=== PATIENT | male | born 1950 | race Caucasian/White ===

== ENCOUNTER 2018-06-06 09:44 | Inpatient (IN) | payer SELFPAY ==
[~2018-06-06] VITALS: Ht 180.3 cm; Wt 84.4 kg
--- NOTE | 2018-06-06 09:34 | NUR ---
ED Nurse Note: Pt BIBA from [facility] due to dizziness and multiple falls due to dizziness. No head trauma, no KO. Pt had a stent placed 2 years ago. Pt was in hospital from [facility] from 05/23 to 06/05/18 for HTN. Since the discharge, pt has started the fall episodes. AOx4, BP 91/70 upon arrival. Pt usually walks with walker. Monitor attached. Will cont to monitor.
[2018-06-06 09:44] VITALS: BP 118/74
[~2018-06-06 09:44] MED LIST: DOCUSATE SODIU100 MG ORAL; ELIQUIS5 MG PO; FERROUS SULFAT325 MG ORAL; LIPITOR40 MG ORAL; VENLAFAXINE HC150 MG ORAL; XARELTO10 MG ORAL
[2018-06-06] MEDS ORDERED: Sodium Chloride 500ML 500 ML IV ONE (09:47)
--- NOTE | 2018-06-06 10:00 | NUR ---
ED Nurse Note: Blood drawn and sent to lab. X-ray at bedside.
[2018-06-06 10:21] LABS: BASOPHILS % (AUTO) 2.4 % (0.0-2.0); EOSINOPHILS % (AUTO) 1.9 % (0.0-3.0); HEMATOCRIT 43.2 % (42.0-52.0); HEMOGLOBIN 13.2 G/DL (14.2-18.0); LYMPHOCYTES % (AUTO) 12.3 % (20.0-45.0); MEAN CORPUSCULAR VOLUME 86 FL (80-99); MONOCYTES % (AUTO) 7.2 % (1.0-10.0); NEUTROPHILS % (AUTO) 76.2 % (45.0-75.0); PLATELET COUNT 371 K/UL (150-450); RED BLOOD COUNT 5.02 M/UL (4.70-6.10); RED CELL DISTRIBUTION WIDTH 18.2 % (11.6-14.8); WHITE BLOOD COUNT 7.7 K/UL (4.8-10.8)
--- NOTE | 2018-06-06 10:23 | NUR ---
ED Nurse Note: Pt refuses CT head, stated " I did not hit my head, I dont need one", ERMD aware.
[2018-06-06 10:27] LABS: ANION GAP 10 mmol/L (5-15); BLOOD UREA NITROGEN 20 mg/dL (7-18); CALCIUM 9.3 MG/DL (8.5-10.1); CARBON DIOXIDE 24 MMOL/L (21-32); CHLORIDE 104 MMOL/L (98-107); CREATININE 2.1 MG/DL (0.55-1.30); POTASSIUM 4.5 MMOL/L (3.5-5.1); SODIUM 138 MMOL/L (136-145)
[2018-06-06 10:33] LABS: INR 1.1 (0.9-1.1)
[2018-06-06 10:41] LABS: ALANINE AMINOTRANSFERASE 24 U/L (12-78); ALBUMIN 3.5 G/DL (3.4-5.0); ALBUMIN/GLOBULIN RATIO 0.8 (1.0-2.7); ALKALINE PHOSPHATASE 71 U/L (46-116); ASPARTATE AMINO TRANSFERASE 34 U/L (15-37); BILIRUBIN,TOTAL 0.4 MG/DL (0.2-1.0); CKMB 0.5 NG/ML (0.0-3.6); CREATINE KINASE 41 U/L (26-308)
--- NOTE | 2018-06-06 10:51 | Diagnostic Imaging Report ---
Indication: Shortness of breath Technique: One view of the chest Comparison: 01/27/2016 Findings: The heart is enlarged. The lungs and pleural spaces are clear. The aorta is calcified Impression: Cardiomegaly. No acute process
[2018-06-06 11:27] VITALS: BP 144/87
--- NOTE | 2018-06-06 11:28 | Emergency Room Report ---
History of Present Illness General Chief Complaint: Dizziness Source: EMS Present Illness HPI 67-year-old male presents ED for evaluation. Patient complaining of dizziness and fall today. Happened at his rehabilitation facility. States that whenever he urinates he gets dizzy. States he fell but denies hitting his head. States he was just discharged yesterday from another hospital to a rehabilitation facility. States they give him his medications at this facility. History of A. fib. Denies chest pain or shortness of breath. Admits alcohol use but denies any other time. Denies drug use. Denies any headache. No other aggravating relieving factors. Denies any other associated symptoms Allergies: Coded Allergies: No Known Allergies (Unverified , 08/02/14) Patient History Past Medical History: AFib, CVA/TIA Past Surgical History: none Pertinent Family History: none Social History: Denies: smoking, alcohol use, drug use Immunizations: UTD Reviewed Nursing Documentation: PMH: Agreed; PSxH: Agreed Nursing Documentation-PMH Past Medical History: No History, Except For Hx Cardiac Problems: No - KIDNEY DISEASE, CHF, AFIB Hx Hypertension: Yes Hx Pacemaker: Yes Hx Cancer: No Hx Gastrointestinal Problems: No Hx Neurological Problems: Yes Hx Cerebrovascular Accident: Yes Hx Syncope: Yes Hx Headaches: Yes Hx Numbness: Yes Review of Systems All Other Systems: negative except mentioned in HPI Physical Exam Vital Signs Date Time Temp Pulse Resp B/P (MAP) Pulse Ox O2 Delivery O2 Flow Rate FiO2 06/06/18 09:29 97.9 96 18 120/47 100 Room Air Sp02 EP Interpretation: reviewed, normal General Appearance: no apparent distress, alert, GCS 15, non-toxic Head: normocephalic, atraumatic Eyes: bilateral eye normal inspection, bilateral eye PERRL ENT: hearing grossly normal, normal pharynx, no angioedema, normal voice Neck: full range of motion, supple/symm/no masses Respiratory: chest non-tender, lungs clear, normal breath sounds, speaking full sentences Cardiovascular #1: regular rate, rhythm, no edema Cardiovascular #2: 2+ carotid (R), 2+ carotid (L), 2+ radial (R), 2+ radial (L) , 2+ dorsalis pedis (R), 2+ dorsalis pedis (L) Gastrointestinal: normal bowel sounds, non tender, soft, non-distended, no guarding, no rebound Rectal: deferred Genitourinary: normal inspection, no CVA tenderness Musculoskeletal: back normal, gait/station normal, normal range of motion, non- tender Neurologic: alert, oriented x3, responsive, motor strength/tone normal, sensory intact, speech normal Psychiatric: judgement/insight normal, memory normal, mood/affect normal, no suicidal/homicidal ideation Reflexes: 3+ bicep (R), 3+ bicep (L), 3+ tricep (R), 3+ tricep (L), 3+ knee (R) , 3+ knee (L) Skin: normal color, no rash, warm/dry, well hydrated Lymphatic: no adenopathy Medical Decision Making Diagnostic Impression: Primary Impression: Atrial fibrillation Qualified Codes: I48.91 - Unspecified atrial fibrillation Additional Impressions: Dizziness Unsteady gait Renal failure Qualified Codes: N18.9 - Chronic kidney disease, unspecified ER Course Hospital Course 67 yo M presents to ED c/o dizziness, s/p fall today Differential diagnoses include: NV/unstable angina, arrythmia, dehydration, CVA/ TIA Clinical course Patient placed on stretcher. on court monitor. After initial history and physical I ordered labs, EKG, chest x-ray, IVFs, CT Brain labs reviewed- no leukocytosis, hemoglobin/hematocrit ok, BUN/Cr elevated, troponins negative, UDS negative EKG- afib, no acute ischemic changes interpreted by me Chest x-ray- cardiomegaly CT brain- patient declined It is not safe for patient to be discharged to home as he is a fall risk Case discussed with Dr. Garcia and he agreed to accept the patient to his service for further care and support I. I feel this is a highly complex case requiring extensive working including EKG/Rhythm strip, Xray/CT/US, Blood/urine lab work, repeat exams while in ED, and administration of strong opiates/narcotics for pain control, admission to hospital or close patient follow up. Diagnosis - afib, dizziness, unsteady gait, renal failure admitted to telemetry in serious condition Labs Test 06/06/18 10:00 06/06/18 10:14 White Blood Count 7.7 K/UL (4.8-10.8) Red Blood Count 5.02 M/UL (4.70-6.10) Hemoglobin 13.2 G/DL (14.2-18.0) Hematocrit 43.2 % (42.0-52.0) Mean Corpuscular Volume 86 FL (80-99) Mean Corpuscular Hemoglobin 26.4 PG (27.0-31.0) Mean Corpuscular Hemoglobin Concent 30.7 G/DL (32.0-36.0) Red Cell Distribution Width 18.2 % (11.6-14.8) Platelet Count 371 K/UL (150-450) Mean Platelet Volume 8.3 FL (6.5-10.1) Neutrophils (%) (Auto) 76.2 % (45.0-75.0) Lymphocytes (%) (Auto) 12.3 % (20.0-45.0) Monocytes (%) (Auto) 7.2 % (1.0-10.0) Eosinophils (%) (Auto) 1.9 % (0.0-3.0) Basophils (%) (Auto) 2.4 % (0.0-2.0) Prothrombin Time 11.3 SEC (9.30-11.50) Prothromb Time International Ratio 1.1 (0.9-1.1) Activated Partial Thromboplast Time 31 SEC (23-33) Sodium Level 138 MMOL/L (136-145) Potassium Level 4.5 MMOL/L (3.5-5.1) Chloride Level 104 MMOL/L (98-107) Carbon Dioxide Level 24 MMOL/L (21-32) Anion Gap 10 mmol/L (5-15) Blood Urea Nitrogen 20 mg/dL (7-18) Creatinine 2.1 MG/DL (0.55-1.30) Estimat Glomerular Filtration Rate 31.5 mL/min (>60) Glucose Level 157 MG/DL (74-106) Calcium Level 9.3 MG/DL (8.5-10.1) Total Bilirubin 0.4 MG/DL (0.2-1.0) Aspartate Amino Transf (AST/SGOT) 34 U/L (15-37) Alanine Aminotransferase (ALT/SGPT) 24 U/L (12-78) Alkaline Phosphatase 71 U/L (46-116) Total Creatine Kinase 41 U/L (26-308) Creatine Kinase MB 0.5 NG/ML (0.0-3.6) Creatine Kinase MB Relative Index 1.2 Troponin I 0.000 ng/mL (0.000-0.056) Pro-B-Type Natriuretic Peptide 1224 pg/mL (0-125) Total Protein 7.9 G/DL (6.4-8.2) Albumin 3.5 G/DL (3.4-5.0) Globulin 4.4 g/dL Albumin/Globulin Ratio 0.8 (1.0-2.7) Serum Alcohol < 3 mg/dL Urine Opiates Screen Negative (NEGATIVE) Urine Barbiturates Screen Negative (NEGATIVE) Phencyclidine (PCP) Screen Negative (NEGATIVE) Urine Amphetamines Screen Negative (NEGATIVE) Urine Benzodiazepines Screen Negative (NEGATIVE) Urine Cocaine Screen Negative (NEGATIVE) Urine Marijuana (THC) Screen Negative (NEGATIVE) EKG Diagnostic Results Rate: normal Rhythm: other - afib ST Segments: no acute changes Rhythm Strip Diag. Results EP Interpretation: yes Rhythm: no PVC's, no ectopy Chest X-Ray Diagnostic Results Chest X-Ray Diagnostic Results : Chest X-Ray Ordered: Yes # of Views/Limited/Complete: 1 View Indication: Other - dizziness EP Interpretation: Yes Interpretation: no consolidation, no effusion, no pneumothorax, no acute cardiopulmonary disease Impression: Other - cardiomegaly Electronically Signed by: Electronically signed by Nic Morrow MD Last Vital Signs Date Time Temp Pulse Resp B/P (MAP) Pulse Ox O2 Delivery O2 Flow Rate FiO2 06/06/18 09:44 97.9 99 18 118/74 100 Room Air Status: improved Disposition: ADMITTED INPATIENT Condition: Serious Nic Morrow MD Jun 06, 2018 11:28
[2018-06-06 12:32] VITALS: BP 150/80
--- NOTE | 2018-06-06 12:32 | NUR ---
ED Nurse Note: Report given to Poly Duarte at ext [phone].
[2018-06-06 12:57] VITALS: BP 152/87
--- NOTE | 2018-06-06 13:12 | NUR ---
NURSE NOTES: Received admission from Er and report from Poly mancia. Upon arrival the patient ambulated topwards his bed and allowed us to apply the heart monitor on him. Once vitals were taken, he stated "I can not stay here, they are going to get rid of my dog". I asked the patient to elaborate and he stated that he has been away from home for so long that they are going to get rid of his dog. Patient is alert and oriented X 4. Explained the risks of leaving the hospital against medical advice. Pt verbalizes understanding regarding potential risks. Pt has signed the AMA form. Heart monitor removed.
--- NOTE | 2018-06-06 13:16 | Consultation ---
History of Present Illness General Date patient seen: Jun 06, 2018 Chief Complaint: Dizziness Present Illness HPI 67 yo male with hx of mmp and depression who was admitted for dizziness. the pt pw anxiety and depressed mood the pt was agitated. the pt didn't get his effexor in the morning. the pt stated that he would like to be discharged. no si /hi Allergies: Coded Allergies: No Known Allergies (Unverified , 08/02/14) Medication History Scheduled Atorvastatin Calcium* (Lipitor*), 40 MG ORAL DAILY, (Reported) Docusate Sodium* (Docusate Sodium*), 200 MG ORAL DAILY, (Reported) Ferrous Sulfate* (Ferrous Sulfate*), 325 MG ORAL DAILY, (Reported) Rivaroxaban (Xarelto*), 15 MG ORAL DAILY, (Reported) Venlafaxine Hcl* (Venlafaxine Hcl Er*), 150 MG ORAL DAILY, (Reported) Miscellaneous Medications Apixaban (Eliquis), 5 MG PO, (Reported) Patient History Limited by: medical condition History Provided By: Patient, Medical Record Healthcare decision maker Resuscitation status Advanced Directive on File Past Medical/Surgical History Past Medical/Surgical History: (1) ACS (acute coronary syndrome) (2) ACS (acute coronary syndrome) (3) Syncope (4) Anemia (5) Atrial fibrillation with RVR (6) Atrial fibrillation (7) Unsteady gait (8) Dizziness (9) Renal failure Review of Systems Psychiatric: Reports: prior hx, anxiety, depressed feelings, emotional problems Physical Exam General Appearance: alert, moderate distress, agitated Neurologic: oriented x 3, responsive, depressed affect Last 24 Hour Vital Signs Date Time Temp Pulse Resp B/P (MAP) Pulse Ox O2 Delivery O2 Flow Rate FiO2 06/06/18 12:57 97.8 100 15 152/87 (108) 98 06/06/18 12:32 97.9 98 18 150/80 100 Room Air 06/06/18 12:32 97.9 98 18 150/80 100 Room Air 06/06/18 11:27 97.9 92 19 144/87 100 Room Air 06/06/18 09:44 97.9 99 18 118/74 100 Room Air 06/06/18 09:42 96 18 Room Air 06/06/18 09:29 97.9 96 18 120/47 100 Room Air Laboratory Tests Test 06/06/18 10:00 1/7/19 10:14 White Blood Count 7.7 K/UL (4.8-10.8) Red Blood Count 5.02 M/UL (4.70-6.10) Hemoglobin 13.2 G/DL (14.2-18.0) L Hematocrit 43.2 % (42.0-52.0) Mean Corpuscular Volume 86 FL (80-99) Mean Corpuscular Hemoglobin 26.4 PG (27.0-31.0) L Mean Corpuscular Hemoglobin Concent 30.7 G/DL (32.0-36.0) L Red Cell Distribution Width 18.2 % (11.6-14.8) H Platelet Count 371 K/UL (150-450) Mean Platelet Volume 8.3 FL (6.5-10.1) Neutrophils (%) (Auto) 76.2 % (45.0-75.0) H Lymphocytes (%) (Auto) 12.3 % (20.0-45.0) L Monocytes (%) (Auto) 7.2 % (1.0-10.0) Eosinophils (%) (Auto) 1.9 % (0.0-3.0) Basophils (%) (Auto) 2.4 % (0.0-2.0) H Prothrombin Time 11.3 SEC (9.30-11.50) Prothromb Time International Ratio 1.1 (0.9-1.1) Activated Partial Thromboplast Time 31 SEC (23-33) Sodium Level 138 MMOL/L (136-145) Potassium Level 4.5 MMOL/L (3.5-5.1) Chloride Level 104 MMOL/L (98-107) Carbon Dioxide Level 24 MMOL/L (21-32) Anion Gap 10 mmol/L (5-15) Blood Urea Nitrogen 20 mg/dL (7-18) H Creatinine 2.1 MG/DL (0.55-1.30) H Estimat Glomerular Filtration Rate 31.5 mL/min (>60) Glucose Level 157 MG/DL (74-106) H Calcium Level 9.3 MG/DL (8.5-10.1) Total Bilirubin 0.4 MG/DL (0.2-1.0) Aspartate Amino Transf (AST/SGOT) 34 U/L (15-37) Alanine Aminotransferase (ALT/SGPT) 24 U/L (12-78) Alkaline Phosphatase 71 U/L (46-116) Total Creatine Kinase 41 U/L (26-308) Creatine Kinase MB 0.5 NG/ML (0.0-3.6) Creatine Kinase MB Relative Index 1.2 Troponin I 0.000 ng/mL (0.000-0.056) Pro-B-Type Natriuretic Peptide 1224 pg/mL (0-125) H Total Protein 7.9 G/DL (6.4-8.2) Albumin 3.5 G/DL (3.4-5.0) Globulin 4.4 g/dL Albumin/Globulin Ratio 0.8 (1.0-2.7) L Serum Alcohol < 3 mg/dL Urine Opiates Screen Negative (NEGATIVE) Urine Barbiturates Screen Negative (NEGATIVE) Phencyclidine (PCP) Screen Negative (NEGATIVE) Urine Amphetamines Screen Negative (NEGATIVE) Urine Benzodiazepines Screen Negative (NEGATIVE) Urine Cocaine Screen Negative (NEGATIVE) Urine Marijuana (THC) Screen Negative (NEGATIVE) Height (Feet): 5 Height (Inches): 11.00 Weight (Pounds): 186 Assessment/Plan Problem List: (1) MDD (major depressive disorder), recurrent episode ICD Codes: F33.9 - Major depressive disorder, recurrent, unspecified SNOMED: [id number] Assessment/Plan Effexor sr 150mg qam provided ro/Lavonne Quiroz MD Jun 06, 2018 13:16
--- NOTE | 2018-06-06 13:33 | NUR ---
NURSE NOTES:Called and left a message for Dr. Garcia regarding new admission leaving AMA
[2018-06-06] MEDS ORDERED: Venlafaxine XR 150mg cap ORAL SCH (14:00)
--- NOTE | 2018-06-07 14:21 | Discharge Summary ---
Discharge Summary Discharge Summary _ DATE OF ADMISSION: 06/06/2018 DATE OF DISCHARGE: 06/06/2018 Patient left AGAINST MEDICAL ADVICE REASON FOR ADMISSION: 67 years old male with past medical history of CVA/TIA, atrial fibrillation, presented to emergency department, complaining of dizziness ,status post fall at the same day. The fall happened at the rehabilitation facility. Patient also reported feeling dizzy during urination. Patient denied hitting his head during fall. Patient was just discharged from another hospital to rehabilitation facility. He denied chest pain ,shortness of breath . He admitted to alcohol use, but denied it at this time. No drug use . No headache. Upon evaluation vital signs were stable. Laboratory workup revealed no leukocytosis. Stable hemoglobin hematocrit. Troponin negative. EKG revealed atrial fibrillation, no acute ischemic changes , controlled rate. Urine drug screen was negative. Chest x-ray revealed cardiomegaly. Patient declined CT of the head Stable electrolytes, BUN 20 ,creatinine 2.1 . Pro BNP 1224 Alcohol level less than 3. Patient admitted with diagnosis of atrial fibrillation , renal failure, dizziness, unsteady gait. HOSPITAL COURSE: Patient admitted to telemetry floor. Patient started on IV hydration. Psychiatric evaluation was requested. Psychiatrist seen and evaluated the patient, and diagnosed patient with major depressive disorder with recurrent episodes. Patient started on Effexor. Reality orientation and supportive therapy provided. Patient came on telemetry floorm stating that he could not stay there due to fear that "they will get rid of his dog". Patient wanted to sign AGAINST MEDICAL ADVICE. The risks and consequences of signing AGAINST MEDICAL ADVICE were discussed with patient in detail. Patient verbalized understanding, nevertheless signed AMA form and left. Patient awake, alert ,oriented x4 before discharge. Vital signs were stable FINAL DIAGNOSES: Major depressive disorder ,recurrent Atrial fibrillation Unsteady gait Renal failure Dizziness I have been assigned to dictate discharge summary for this account. I was not involved in the patient's management. Latisha Long NP Jun 07, 2018 14:21
--- NOTE | 2018-06-07 14:40 | Cardiology Report ---
APPROVED REPORT EKG Measurement Heart [id number] Atrial fibrillation with rapid ventricular response Nonspecific ST and T wave abnormality Abnormal ECG
== END 2018-06-06 13:20 | disposition left against medical advice (07) | DRG 310 ==
LOC: EDBD 09:44 → EMR 10:49 → 2E 11:41 → EDBEDREQ 11:46
DX: I48.91 Unspecified atrial fibrillation (principal); R42 Dizziness and giddiness; Z91.81 History of falling; R26.81 Unsteadiness on feet; F32.9 Major depressive disorder, single episode, unspecified; I12.9 Hypertensive chronic kidney disease with stage 1 through stage 4 chronic kidney disease, or unspecified chronic kidney disease; Z86.73 Personal history of transient ischemic attack (TIA), and cerebral infarction without residual deficits; Z95.0 Presence of cardiac pacemaker; N18.9 Chronic kidney disease, unspecified
CPT/HCPCS: 36415; 71045; 80053; 80307; 80329; 82550; 82553; 83880; 84484; 85025; 85610; 85730; 87081; 93005; 99285